=== PATIENT | female | born 1960 | race Caucasian/White ===

== ENCOUNTER 2024-01-21 19:57 | Emergency (ER) | payer MEDICAID ==
[~2024-01-21] VITALS: Ht 165.1 cm; Wt 68.2 kg
[~2024-01-21 19:57] MED LIST: CARB-92 PO; TRAZ-257 PO
[2024-01-21 20:29] VITALS: BP 118/75; PULSE 88; RESP 18
[2024-01-21] MEDS: SODIUM CHLORIDE 0.9% 1,000 ML IV ONE (20:36)
[2024-01-21] MEDS: LevETIRAcetam 500 MG TABLET PO ONE (20:51)
[2024-01-21] MEDS ORDERED: LEVE750T4 PO (23:00)
== END 2024-01-21 23:57 | disposition home or self-care (01) ==
LOC: EMS 19:57
DX: G40.909 Epilepsy, unspecified, not intractable, without status epilepticus (principal); F32.A Depression, unspecified; F17.210 Nicotine dependence, cigarettes, uncomplicated; Z98.890 Other specified postprocedural states; Z91.013 Allergy to seafood; Z88.0 Allergy status to penicillin; Z59.00 Homelessness unspecified; Z76.0 Encounter for issue of repeat prescription
CPT/HCPCS: 99283